=== PATIENT | male | born 1970 | race Caucasian/White ===

== ENCOUNTER 2021-03-02 09:28 | Inpatient (IN) ==
[2021-02-20 19:36] LABS: Basophils # (Auto) 0.11 K/mcL (0.00-0.30); Basophils % (Auto) 1.1 % (0.0-2.0); Eosinophils # (Auto) 0.58 K/mcL (0.00-0.70); Hematocrit 39.5 % (40.1-51.0); Hemoglobin 12.8 g/dL (13.7-17.5); Lymphocytes # (Auto) 2.37 K/mcL (1.50-4.80); Lymphocytes % (Auto) 24.6 % (15.5-49.0); Mean Cell Volume 90.8 fL (80.0-100.0); Mean Corpuscular HGB Conc 32.4 g/dL (31.0-36.0); Mean Platelet Volume 10.5 fL (7.4-10.4); Monocytes # (Auto) 0.63 K/mcL (0.10-0.90); Monocytes % (Auto) 6.5 % (1.0-12.0); Neutrophils % (Auto) 61.8 % (38.0-78.0); Platelet Count 317 K/mcL (140-440); RBC 4.35 M/mcL (4.63-6.08); Red Cell Distribution Width 14.5 % (11.5-14.5); WBC 9.6 K/mcL (4.5-11.0)
[2021-02-20 19:48] LABS: ALT/SGPT 32 U/L (<40); AST/SGOT 22 U/L (<40); Albumin 4.3 gm/dL (3.2-5.2); Albumin/Globulin Ratio 1.6 (1.0-2.3); Alkaline Phosphatase 81 U/L (39-117); Bilirubin,Total < 0.2 mg/dL (0.1-1.0); Blood Urea Nitrogen 16 mg/dL (6-20); Calcium 9.4 mg/dL (8.6-10.4); Carbon Dioxide 25 mmol/L (22-30); Chloride 103 mmol/L (96-108); Globulin 2.7 gm/dL (2.2-3.7); Glomerular Filtration Rate 105; Glucose 123 mg/dL (70-105)
[2021-02-21 11:12] LABS: Hemoglobin A1C 5.3 % Hgb (4.0-6.0)
--- NOTE | 2021-02-21 12:42 | EKG ---
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
[~2021-03-02 09:28] MED LIST: CLINDAMYCIN 600 MG in DEXTROSE 5% IN WATER 50 ML IV SCH
[2021-03-02] MEDS ORDERED: SCOPOLAMINE 1 PATCH PATCH TOPICAL PRN (09:30)
[2021-03-02] MEDS ORDERED: IPRATROPIUM/ALBUTEROL 3 ML AMPUL.NEB NEB PRN ×2 (09:30→13:04)
[2021-03-02] MEDS ORDERED: ROCURONIUM 10 MG/ML ML IV ONE (12:00)
[2021-03-02] MEDS ORDERED: ePHEDrine 50 MG/5 ML SYRINGE (ANEST) IV ONE (12:00)
[2021-03-02] MEDS ORDERED: SUGAMMADEX SODIUM 200 MG/2 ML VIAL IV ONE (12:00)
[2021-03-02] MEDS ORDERED: SUCCINYLCHOLINE 20 MG/ML ML IV ONE (12:00)
[2021-03-02] MEDS ORDERED: morphine 10 MG/ML VIAL ONE (12:00)
[2021-03-02] MEDS ORDERED: fentaNYL 100 MCG/2 ML VIAL IV ONE (12:00)
[2021-03-02] MEDS ORDERED: DEXAMETHASONE 10 MG/ML VIAL ONE (12:00)
[2021-03-02] MEDS ORDERED: TRANEXAMIC ACID 1,000 MG/10 ML VIAL ONE (12:00)
[2021-03-02] MEDS ORDERED: FUROSEMIDE 100 MG/10 ML VIAL IV ONE (12:00)
[2021-03-02] MEDS ORDERED: PROPOFOL 200 MG/20 ML VIAL IV ONE (12:00)
[2021-03-02] MEDS ORDERED: MIDAZOLAM 2 MG/2 ML VIAL ONE (12:00)
[2021-03-02] MEDS ORDERED: ROPIVACAINE HCL/PF 30 ML VIAL IJ ONE (12:00)
[2021-03-02] MEDS ORDERED: PHENYLephrine 1 MG/10 ML SYRINGE (ANEST) ONE (12:00)
[2021-03-02] MEDS ORDERED: HYDROmorphone 1 MG/ML SYRINGE ONE (12:00)
[2021-03-02] MEDS ORDERED: METOPROLOL TARTRATE 5 MG/5 ML VIAL IV ONE (12:00)
[2021-03-02] MEDS ORDERED: GLYCOPYRROLATE 0.2 MG/ML VIAL IV ONE (12:00)
[2021-03-02] MEDS ORDERED: MAGNESIUM SULFATE 4 GM/100 ML BAG IV ONE (12:00)
[2021-03-02] MEDS ORDERED: LIDOCAINE HCL/PF 100 MG/5 ML SYRINGE IV ONE (12:00)
[2021-03-02] MEDS ORDERED: ONDANSETRON 4 MG/2 ML VIAL ONE (12:00)
[2021-03-02] MEDS ORDERED: ESMOLOL 100 MG/10 ML VIAL IV ONE (12:00)
[2021-03-02] MEDS ORDERED: KETAMINE 50 MG/ML Syringe (ANEST) IV ONE (12:00)
[2021-03-02] MEDS ORDERED: ACETAMINOPHEN 1,000 MG/100 ML BAG IV ONE (13:04)
[2021-03-02] MEDS ORDERED: METHOCARBAMOL 1,000 MG/10 ML VIAL IV PRN (13:04)
[2021-03-02] MEDS ORDERED: LABETALOL 5 MG/ML ML IV PRN (13:04)
[2021-03-02] MEDS ORDERED: NALOXONE HCL 0.4 MG/ML VIAL IV PRN (13:04)
[2021-03-02] MEDS ORDERED: FLUMAZENIL 0.1 MG/ML ML IV PRN (13:04)
[2021-03-02] MEDS ORDERED: METOPROLOL TARTRATE 5 MG/5 ML VIAL IV PRN (13:04)
[2021-03-02] MEDS ORDERED: MEPERIDINE 25 MG/ML VIAL IV PRN (13:04)
[2021-03-02] MEDS ORDERED: BENZOCAINE/MENTHOL 1 LOZENGE PO PRN (13:04)
[2021-03-02] MEDS ORDERED: ONDANSETRON 4 MG/2 ML VIAL IV PRN ×2 (13:04→13:31)
[2021-03-02] MEDS ORDERED: HYDROmorphone 0.5 MG/0.5 ML SYRINGE IV PRN (13:04)
[2021-03-02] MEDS ORDERED: LACTATED RINGERS 250 ML IV PRN (13:04)
[2021-03-02] MEDS ORDERED: LACTATED RINGERS 1,000 ML IV SCH (13:15)
[2021-03-02] MEDS ORDERED: METHYLENE BLUE 50 MG/10 ML AMPUL INJ ONE (13:21)
--- NOTE | 2021-03-02 13:31 | Operative Note ---
Brief Operative Note Date of procedure: 03/02/21 Pre-op diagnosis: Colovesicular fistula Post-op diagnosis: same Procedure: Sigmoid colectomy Grafts/Implants: No Anesthesia: GETA Findings: Colovesicular fistula no defect in the bladder Complications: none Surgeon: Hayden Farley Card Cleaner: Karl Saavedra Estimated blood loss (cc): 50 Specimens Removed/Pathology: other (Sigmoid colon anastomotic donuts) Condition: stable Disposition: floor Operative Note Operative Note: After risk benefits and alternatives to the procedure were discussed with the patient at length he verbalized understanding and desire to continue with the procedure. Patient was taken to the main operating place upon the operative table and general anesthesia was induced over endotracheal tube. An NG tube and a Ramon catheter was placed. Patient's prepped and draped in the standard sterile surgical fashion. Surgical timeout was taken to verify patient and procedure being performed. Midline incision was made carried down through skin subtenons tissue. This was carried just above the umbilicus and down to the pubic tubercle. Upon entry into the abdominal cavity no obvious injuries were encountered. There were several omental adhesions these were carefully taken down with blunt and electrocautery dissection. The sigmoid colon was clearly attached to the dome of the bladder this was carefully taken down with blunt and sharp dissection. Once this was taken down Dr. Saavedra inspected bladder there was no obvious hole. The sigmoid colon was then mobilized taken down the white line of Toldt's with blunt and electrocautery dissection. Once the sigmoid colon was fully mobile it was transected at the sigmoid rectal junction with a contour stapler. The mesentery was taken down with a vessel sealing device. Approximately 3 cm proximal to the area of the colon which was clearly inflamed and was stuck to the bladder it was transected with a LAURA stapler. The sigmoid colon was passed off the field for surgical pathology. The bladder was then instilled with 400 cc of dilute methylene blue, the bladder was inspected and there was no obvious leak and no drainage of methylene blue. The sigmoid colon was then opened it was dilated to 33 therefore a 31 EEA stapler was chosen. The anvil was passed into the end of the sigmoid colon it was stapled and the anvil was brought out through the staple line in standard fashion. Attention was then turned to the rectum which was serially dilated to 33 dilators and then a 31 EEA stapler was passed through the rectum and brought out through the rectal staple line. A end-to-end stapled anastomosis was then performed. A leak test was performed which showed no leaks and showed that the anastomosis was air and watertight. The irrigation was removed from the abdominal cavity the bowel bladder and omentum were all returned to their anatomical position. The abdominal cavity was inspected for hemostasis. Midline incision was then closed with a running looped 0 PDS suture. Subcutaneous tissue was reapproximate with a running 3-0 Vicryl suture and the skin was brought together with surgical melchor. Dressings were applied. Patient was then awakened from anesthesia transported postanesthesia care unit awake alert in good condition.
[2021-03-02] MEDS: fentaNYL 100 MCG/2 ML VIAL IV PRN ×4 (14:05→14:24)
[2021-03-02] MEDS: HYDROmorphone 0.5 MG/0.5 ML SYRINGE IV PRN ×4 (14:59→22:05)
[2021-03-02] MEDS: LACTATED RINGERS 1,000 ML IV SCH ×2 (15:59→23:10)
[2021-03-02] MEDS: IBUPROFEN 600 MG TABLET PO PRN (16:12)
[2021-03-02] MEDS: oxyCODONE HCL 5 MG TABLET PO PRN ×2 (19:35→23:41)
[2021-03-03] MEDS: oxyCODONE HCL 5 MG TABLET PO PRN ×5 (04:14→23:38)
[2021-03-03] MEDS: HYDROmorphone 0.5 MG/0.5 ML SYRINGE IV PRN ×3 (06:36→18:32)
[2021-03-03] MEDS: IBUPROFEN 600 MG TABLET PO PRN ×3 (06:36→18:32)
[2021-03-03] MEDS: LACTATED RINGERS 1,000 ML IV SCH ×3 (06:44→22:41)
[2021-03-03] MEDS: ACETAMINOPHEN 325 MG TABLET PO PRN (10:35)
--- NOTE | 2021-03-03 11:49 | General Surgery Progress Note ---
SUBJECTIVE Subjective Patient information: Note initiated : 03/03/21 at 11:48 am Service Date, if different from initiated Date: [] Patient: Capo Delgado 50 y/o M admitted on 03/02/21 for Sigmoid Colectomy. Chief Complaint: [] Principal diagnosis: Postop day #1 status post open sigmoid colectomy Interval history: Patient is doing well overnight, positive flatus, positive ambulatory. No fevers chills nausea or vomiting. Constitutional Vitals: Vital Signs Temp Pulse Resp BP Pulse Ox 98.9 F 73 18 135/78 94 03/03/21 11:18 03/03/21 11:18 03/03/21 11:18 03/03/21 11:18 03/03/21 11:18 Period Temp Pulse Resp BP Sys/Emrlos Pulse Ox Last 24 Hr 98 F-98.9 F 73-106 14-20 118-166/64-101 90-100 Intake and Output 03/02/21 03/03/21 03/03/21 21:59 05:59 13:59 Intake Total 200 1173 946 Output Total 2075 425 Balance -1875 748 946 Weight 250 lb 11.2 oz Intake & Output: Intake & Output 03/02/21 03/03/21 03/03/21 21:59 05:59 13:59 Intake Total 200 1173 946 Output Total 2075 425 Balance -1875 748 946 Weight 250 lb 11.2 oz Intake: IV 100 898 946 Lactated Ringers 1,000 ml @ 125 898 946 mls/hr IV .Q8H [facility] Rx#: [id number] Oral 275 IV - Manual Only 100 Output: Urine Catheter Amount 2075 425 Uretheral (Ramon) 1100 Other: Urine Appearance Clear Clear Uretheral (Ramon) Clear Clear Urine Color Blue Bright Yellow Uretheral (Ramon) Blue Bright Yellow General appearance: cooperative and no acute distress GI/Abdominal GI/Abdominal exam: Present soft and tenderness (Appropriately tender); Absent distended Additional comments: Incision is clean dry and intact dressings in place A/P Narrative A/P Narrative: Postop day #1 status post open sigmoid colectomy. We will advance diet as tolerated, restart home medications. Encourage ambulation. Time Spent With Patient Time: Total time spent is greater than 50% in coordination of care (as documented) at patient's floor/unit and/or counseling patient:
[2021-03-03] MEDS ORDERED: FLUTICASONE PROPIONATE SPRAY.NAS NS PRN (11:50)
[2021-03-03] MEDS ORDERED: ALBUTEROL SULFATE 200 PUFF INHALER INH PRN (11:50)
[2021-03-03] MEDS: LOSARTAN 50 MG TABLET PO SCH (20:55)
[2021-03-03] MEDS: ESCITALOPRAM 10 MG TABLET PO SCH (20:55)
[2021-03-04] MEDS: HYDROmorphone 0.5 MG/0.5 ML SYRINGE IV PRN ×3 (02:20→22:21)
[2021-03-04] MEDS: IBUPROFEN 600 MG TABLET PO PRN ×4 (02:20→23:48)
[2021-03-04] MEDS: oxyCODONE HCL 5 MG TABLET PO PRN ×5 (05:46→23:48)
[2021-03-04] MEDS: LACTATED RINGERS 1,000 ML IV SCH (06:46)
[2021-03-04] MEDS: KETOROLAC 10 MG TABLET PO PRN ×2 (06:54→12:56)
[2021-03-04] MEDS: LOSARTAN 50 MG TABLET PO SCH ×2 (08:55→21:08)
--- NOTE | 2021-03-04 10:26 | General Surgery Progress Note ---
SUBJECTIVE Subjective Patient information: Note initiated : 03/04/21 at 10:24 am Service Date, if different from initiated Date: [] Patient: Capo Delgado 50 y/o M admitted on 03/02/21 for Sigmoid Colectomy. Chief Complaint: [] Principal diagnosis: Postop day #2 status post open sigmoid colectomy Interval history: Well overnight. Had several small bowel movements. Passing flatus. No nausea vomiting fevers or chills. Patient is ambulatory. Constitutional Vitals: Vital Signs Temp Pulse Resp BP Pulse Ox 97 F 64 16 123/81 95 03/04/21 07:21 03/04/21 07:21 03/04/21 07:21 03/04/21 07:21 03/04/21 07:21 Period Temp Pulse Resp BP Sys/Merlos Pulse Ox Last 24 Hr 97 F-98.9 F 64-100 16-20 121-155/69-86 94-95 Intake and Output 03/03/21 03/04/21 03/04/21 21:59 05:59 13:59 Intake Total 1000 2070 1075 Output Total 250 1500 Balance 591 138 0410 Weight 254 lb 6.4 oz Intake & Output: Intake & Output 03/03/21 03/04/21 03/04/21 21:59 05:59 13:59 Intake Total 1000 2070 1075 Output Total 250 1500 Balance 207 707 8287 Weight 254 lb 6.4 oz Intake: IV 1753 658 8903 Lactated Ringers 1,000 ml @ 125 2073 704 1688 mls/hr IV .Q8H [facility] Rx#: [id number] Oral 1080 75 Output: Urine Catheter Amount 250 1500 Other: Meal Breakfast Percent of Meal Consumed 75% Feeding Ability Independent Urine Appearance Clear Clear Uretheral (Ramon) Clear Urine Color Dark Yellow Bright Yellow Uretheral (Ramon) Bright Yellow Stool Size Small Small Stool Color Brown Blood Tinged Brown Blood Tinged Stool Consistency Liquid Liquid Loose Loose Loose # Bowel Movements 1 1 1 General appearance: cooperative and no acute distress GI/Abdominal GI/Abdominal exam: Present soft and tenderness (Appropriately tender); Absent distended Additional comments: Incision is clean dry and intact A/P Narrative A/P Narrative: Doing as expected postop day #2. Continue with ambulation, will DC IV fluid. Anticipate discharge tomorrow. Time Spent With Patient Time: Total time spent is greater than 50% in coordination of care (as documented) at patient's floor/unit and/or counseling patient:
[2021-03-04] MEDS: ESCITALOPRAM 10 MG TABLET PO SCH (21:08)
[2021-03-05] MEDS: IBUPROFEN 600 MG TABLET PO PRN ×2 (04:15→10:24)
[2021-03-05] MEDS: oxyCODONE HCL 5 MG TABLET PO PRN ×2 (04:15→08:28)
[2021-03-05] MEDS: ACETAMINOPHEN 325 MG TABLET PO PRN (08:28)
[2021-03-05] MEDS: LOSARTAN 50 MG TABLET PO SCH (08:28)
--- NOTE | 2021-03-05 08:44 | Discharge Summary ---
Discharge Provider Provider Patient information: Note initiated : 03/05/21 at 8:43 am Service Date, if different from initiated Date: [] Patient: Capo Delgado 50 y/o M admitted on 03/02/21 for Sigmoid Colectomy. Chief Complaint: [] Date of admission: 03/02/21 09:28 Discharge date: 03/05/21 Primary care physician: Ann Rueda COURSE Hospital Course Hospital course: Patient is admitted for and underwent an uneventful sigmoid colectomy for a colovesicular fistula. Postop he progressed without difficulty, he is ambulatory, he is having bowel movements and is tolerating p.o. diet with no nausea vomiting fevers or chills. Discharge diagnosis: Status post sigmoid colectomy Time Spent with Patient Time attestation: Total time spent providing and/or coordinating discharge services: Physical Examination Vital Signs Vital signs: Temp Pulse Resp BP Pulse Ox 97 F 68 16 133/83 95 03/05/21 07:12 03/05/21 04:00 03/05/21 07:12 03/05/21 07:12 03/05/21 07:12 Discharge Plan Patient/Caregiver Discharge Instructions Activity: increase activity as tolerated Diet: Regular Diet Activity Restrictions/Additional Instructions: Increase activity as tolerated. May resume showering starting today. Follow-up with me in 1 to 2 weeks for staple removal. Call Dr. Saavedra's office in the a.m. to schedule follow-up for Ramon removal. Prescriptions: New ibuprofen 800 mg tablet 800 mg PO TID PRN (Reason: pain) Qty: 90 0RF acetaminophen [Tylenol 8 Hour] 650 mg tablet extended release 650 mg PO Q8H PRN (Reason: pain) Qty: 90 0RF oxycodone 5 mg tablet 5 mg PO Q6H PRN (Reason: pain) Qty: 5 0RF Continued loratadine 10 mg tablet 10 mg PO QDAY PRN (Reason: Allergies) 0RF fluticasone propionate 50 mcg/actuation spray,suspension 2 spray intranasal QDAY PRN (Reason: Allergies) 0RF Rx Instructions: administer into each nostril tamsulosin 0.4 mg capsule 0.4 mg PO HS 0RF albuterol sulfate 90 mcg/actuation Hfa Aerosol Inhaler 2 puff INHALATION Q6H PRN (Reason: Shortness Of Breath) 0RF nitrofurantoin monohyd/m-cryst 100 mg capsule 100 mg PO HS 0RF Rx Instructions: To start once the current prescription for ciprofloxacin is complete. testosterone cypionate 200 mg/mL oil 200 mg IM Q2W 0RF Rx Instructions: Administered on Fridays or Sundays. losartan 50 mg tablet 50 mg PO BID 0RF escitalopram oxalate 10 mg tablet 10 mg PO HS 0RF oxycodone-acetaminophen [Percocet] 10-325 mg tablet 1 tab PO QID PRN (Reason: Pain) 0RF Follow Up Plan Follow up with: Hayden Farley MD [Physician] - 03/16/21 8:00 am Karl Saavedra MD [Physician] - Patient Disposition: Home, Self-Care Discharge Orders: Discharge Order (Routine); Ordered 03/05/21 Ordered By: Hayden Farley Pending Pending Pending: Resuscitation Status Resuscitate (Full Code) Diet Regular Diet Start 2020Mar 03 1150 Acetaminophen (Acetaminophen 325 Mg Tablet) 650 mg PO Q6HP PRN; Protocol PRN Reason: Per Pain Protocol/Fever > 101 Last Admin: 03/05/21 08:28 Dose: 650 mg Documented by: Admin: 03/03/21 10:35 Dose: 650 mg Documented by: CHIDI Escitalopram Oxalate (Escitalopram 10 Mg Tablet) 10 mg PO HS [facility] Last Admin: 03/04/21 21:08 Dose: 10 mg Documented by: Admin: 03/03/21 20:55 Dose: 10 mg Documented by: OVIDIO Hydromorphone HCl (Hydromorphone 0.5 Mg/0.5 Ml Syringe) 0.5 mg IV Q2HP PRN; Protocol PRN Reason: Per Pain Protocol Last Admin: 03/04/21 22:21 Dose: 0.5 mg Documented by: Admin: 03/04/21 17:33 Dose: 0.5 mg Documented by: Admin: 03/04/21 02:20 Dose: 0.5 mg Documented by: Admin: 03/03/21 18:32 Dose: 0.5 mg Documented by: Admin: 03/03/21 12:41 Dose: 0.5 mg Documented by: Admin: 03/03/21 06:36 Dose: 0.5 mg Documented by: Admin: 03/02/21 22:05 Dose: 0.5 mg Documented by: Admin: 03/02/21 19:36 Dose: 0.5 mg Documented by: Admin: 03/02/21 17:29 Dose: 0.5 mg Documented by: Admin: 03/02/21 14:59 Dose: 0.5 mg Documented by: CHIDI Ibuprofen (Ibuprofen 600 Mg Tablet) 600 mg PO QIDP PRN; Protocol PRN Reason: Per Pain Protocol/Fever > 101 Last Admin: 03/05/21 04:15 Dose: 600 mg Documented by: Admin: 03/04/21 23:48 Dose: 600 mg Documented by: Admin: 03/04/21 17:32 Dose: 600 mg Documented by: Admin: 03/04/21 08:57 Dose: 600 mg Documented by: Admin: 03/04/21 02:20 Dose: 600 mg Documented by: Admin: 03/03/21 18:32 Dose: 600 mg Documented by: Admin: 03/03/21 12:41 Dose: 600 mg Documented by: Admin: 03/03/21 06:36 Dose: 600 mg Documented by: Admin: 03/02/21 16:12 Dose: 600 mg Documented by: CHIDI Losartan Potassium (Losartan 50 Mg Tablet) 50 mg PO BID FREIDA Last Admin: 03/05/21 08:28 Dose: 50 mg Documented by: Admin: 03/04/21 21:08 Dose: 50 mg Documented by: Admin: 03/04/21 08:55 Dose: 50 mg Documented by: Admin: 03/03/21 20:55 Dose: 50 mg Documented by: OVIDIO Oxycodone HCl (Oxycodone Hcl 5 Mg Tablet) 5 mg PO Q4HP PRN; Protocol PRN Reason: Per Pain Protocol Last Admin: 03/05/21 08:28 Dose: 5 mg Documented by: Admin: 03/05/21 04:15 Dose: 5 mg Documented by: Admin: 03/04/21 23:48 Dose: 5 mg Documented by: Admin: 03/04/21 19:19 Dose: 5 mg Documented by: Admin: 03/04/21 14:37 Dose: 5 mg Documented by: [email or web address] Admin: 03/04/21 10:39 Dose: 5 mg Documented by: [email or web address] Admin: 03/04/21 05:46 Dose: 5 mg Documented by: Admin: 03/03/21 23:38 Dose: 5 mg Documented by: Admin: 03/03/21 19:48 Dose: 5 mg Documented by: Admin: 03/03/21 14:49 Dose: 5 mg Documented by: Admin: 03/03/21 10:32 Dose: 5 mg Documented by: Admin: 03/03/21 04:14 Dose: 5 mg Documented by: Admin: 03/02/21 23:41 Dose: 5 mg Documented by: Admin: 03/02/21 19:35 Dose: 5 mg Documented by: [email or web address] Shift Summary 03/05/21 04:24 Shift Summary by Lynne Kelsey Primary Diagnosis: Sigmoid Colectomy Registration Status: Medical Day of Hospitalization: Admit 03/02 Date of Surgery (if applicable): 03/02 Pertinent Medical Dx/Issues (may be more than one): Anxiety, nicotine dependence, HTN, Diverticulitis. Interventions (O2, wounds, diuresis, etc): IS use, splinting; ambulate TID; SCDs Vital Signs with Trends: VSS on RA, hypertensive Meds (abo, pain, BP, etc): per eMAR, 0.5mg Dilaudid given x 1. Ibuprofen 600mg Given x 2. Roxicodone Q4HP given x3, Lines/Tubes: 20G IV to right hand SL, flush well Oxygen needs (home use vs. current use): No home O2 use Lab/Rad results: Cardiac Rhythm (if applicable), alarms, trends: Date of last BM: 03/04, liquid, loose; having flatus during this shift Elimination: Ramon to be remained in for 3-4 days after surgery per physician order, BM per bathroom Recommendations/questions for MD (DC Ramon? DC CM? PICC needed?): Vent/Bipap/Cpap: Trends (is the patient improving?): urine is pale clear this morning Activity: Ad-armando in room, SBA when ambulating in hallway Expected date of discharge: 03/05 Discharge Plan (needs, disposition, etc): Home at DC A&Ox4, use call light appropriately, denies N/V. Initialized on 03/05/21 04:24 - END OF NOTE
--- NOTE | 2021-03-06 13:35 | Surgical Pathology Report ---
Histology Microscopic Diagnosis Specimen A- COLON, SIGMOID, PARTIAL COLECTOMY: --- DIVERTICULOSIS AND SEROSAL ADHESIONS. --- VIABLE MARGINS OF RESECTION. --- NO DYSPLASIA OR MALIGNANCY IDENTIFIED. (RLF) Procedural Impression Colovesicular fistula and diverticulosis. Gross Description Received in formalin labeled sigmoid colon segment, is a segment of colon measuring 11 cm in length by 3-3.5 cm in diameter. There is up to 4.5 cm of attached yellow-simpson fatty tissue. There are scattered areas of hyperemia and hemorrhage in the fat. The serosal surface is simpson-pink with area of white-simpson adhesion and hemorrhage measuring up to 4 cm. The specimen is closed at both ends with staple lines. Upon opening, the wall is thickened, firm and up to 0.8 cm. The mucosal surface is simpson and plicated. There are multiple diverticula present. No regions of perforation are identified. No other lesions are identified. Also in the container are three separate mucosal and fatty tissue fragments in aggregate 4.5 x 3 x 1.5 cm. Handle Finisher sections submitted as follows: A1 margins; A2-A3 - sections of diverticula; A4 - section of serosal adhesions; A5 - sales and service representative fatty tissue; A6 - sections of separate mucosal fragments. (RLF:adj) Electronically Signed Rimma Walton MD, FCAP Electronically Signed 03/06/2021 13:33
== END 2021-03-05 10:32 | disposition home or self-care (01) | DRG 983 ==
LOC: MEDSUR 09:28
PROVIDERS: ADMIT Surgery; ATTEND Surgery